=== PATIENT | male | born 2000 | race Caucasian/White ===

== ENCOUNTER 2024-10-06 14:27 | Inpatient (IN) | payer SELFPAY ==
[2024-10-06 14:38] VITALS: BP 122/71; PULSE 88; RESP 18; TEMP 36.7; O2SAT 98
--- NOTE | 2024-10-06 14:42 | ECG_ITS ---
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 Measurements Intervals [place] Rate: 81 P: 48 AK: 155 QRS: 75 QRSD: 90 T: 56 QT: 346 QTc: 404 Interpretive Statements SINUS RHYTHM WITH SINUS ARRHYTHMIA No previous ECG available for comparison Electronically Signed On 10-06-2024 17:49:52 TRAVEL RN OR by Collin Franco M.D. [email or web address]
--- NOTE | 2024-10-06 14:51 | W.ED.PSYCHS ---
HPI - Psych General: Chief Complaint: Psychiatric Symptoms Stated Complaint: SI Time Seen by Provider: 10/06/24 14:30 History of Present Illness: 23-year-old man with a history of admitted methamphetamine abuse with last use a couple of days ago and psychiatric issues including depression who presents emergency room with worsening depression. He says he has suicidal thoughts and is planning on walking in front of a train which is nearby where he is staying. He is currently homeless. No self-mutilating behavior at this time. No fevers. No cough. No altered mental status. He is actively seeking treatment Related Data Home Medications ?Medication ?Instructions ?Recorded ?Confirmed No Known Home Medications 10/06/24 10/06/24 Review of Systems Narrative: Constitutional symptoms: Negative except as documented in HPI. Skin symptoms: Negative except as documented in HPI. Eye symptoms: Negative except as documented in HPI. ENMT symptoms: Negative except as documented in HPI. Respiratory symptoms: Negative except as documented in HPI. Cardiovascular symptoms: Negative except as documented in HPI. Gastrointestinal symptoms: Negative except as documented in HPI. Genitourinary symptoms: Negative except as documented in HPI. Musculoskeletal symptoms: Negative except as documented in HPI. Neurologic symptoms: Negative except as documented in HPI. Psychiatric symptoms: Negative except as documented in HPI. Endocrine symptoms: Negative except as documented in HPI. Physical Exam Narrative: EXAM NARRATIVE: General: Alert. no acute distress Skin: Warm, dry Head: Normocephalic, atraumatic. Neck: Supple, trachea midline. Eye: Extraocular movements are intact. Ears, nose, mouth and throat: Oral mucosa moist. Cardiovascular: Regular rate and rhythm, Normal peripheral perfusion. Respiratory: Lungs are clear to auscultation, respirations are non-labored, breath sounds are equal, Symmetrical chest wall expansion. Gastrointestinal: Soft, Nontender, Non distended, Normal bowel sounds. Musculoskeletal: Normal ROM, no deformity. Neurological: Alert and oriented to person, place, time, and situation, No focal neurological deficit observed. Psychiatric: Cooperative, expresses suicidal ideation. Course Vital Signs: Vital signs: Vital Signs Temperature 98.1 F 10/06/24 14:38 Pulse Rate 88 10/06/24 14:38 Respiratory Rate 18 10/06/24 14:38 Blood Pressure 122/71 10/06/24 14:38 Pulse Oximetry 98 10/06/24 14:38 Oxygen Delivery Me thod Room Air 10/06/24 14:38 MDM - Psych Medical Decision Making Differential diagnosis: Patient with reported depression and suicidal ideation. concerns for infection, alcohol intoxication, cardiac issues or other medical problems prior to psychiatric admission. Workup: labwork, ekg ordered to evaluate the pathologies and to clear the patient medically prior to psychiatric admission EKG: Time 1442. Rate 81. Normal sinus rhythm, No ST-T changes, no ectopy, normal DE & QRS intervals, This was reviewed and interpreted by myself the ER physician at 1448. Lab Review: Laboratory results were reviewed and interpreted by myself the emergency room physician. - Medically cleared. - EKG shows no ischemic changes. - Blood alcohol level is negative, -Tylenol and salicylate levels are negative. - Drug screen is positive for methamphetamine and marijuana. - No signs of infection, urinalysis clear and white count is not elevated - No anemia. - BUN and creatinine are within normal limits. Consultation: I spoke with Dr. Bolanos who is on-call for the psychiatrist service and he agrees to admission Assessment and plan: Depression Suicidal ideation Methamphetamine abuse Homelessness -Admission to neuropsychiatric unit for continued evaluation and treatment. - All lab work was reviewed and interpreted personally by myself, the ER physician - Evaluation and treatment of this problem were appropriate in the emergency setting Lab Data 10/06/24 16:05 10/06/24 16:05 Laboratory Results WBC 5.68 10^3/uL (3.29-11.43) 10/06/24 16:05 RBC 5.45 10^6/uL (3.85-5.65) 10/06/24 16:05 Hgb 14.20 g/dL (11.27-16.99) 10/06/24 16:05 Hct 44.2 % (37-53) 10/06/24 16:05 MCV 81.1 fl (82-101) L 10/06/24 16:05 MCH 26.1 pg (27-33) L 10/06/24 16:05 MCHC 32.1 g/dL (30-55) 10/06/24 16:05 RDW 13.4 % (12.1-15.1) 10/06/24 16:05 Plt Count 283 10^3/cmm (157-399) 10/06/24 16:05 MPV 9.6 fL (7.4-10.4) 10/06/24 16:05 Neut % (Auto) 48.5 % 10/06/24 16:05 Lymph % (Auto) 27.5 % 10/06/24 16:05 [place] % (Auto) 12.0 % 10/06/24 16:05 Eos % (Auto) 9.7 % 10/06/24 16:05 Baso % (Auto) 1.9 % 10/06/24 16:05 Neut # (Auto) 2.76 10^3/uL (1.8-7.7) 10/06/24 16:05 Lymph # (Auto) 1.6 10^3/uL (0.8-4.8) 10/06/24 16:05 [place] # (Auto) 0.7 10^3/uL (0.2-0.9) 10/06/24 16:05 Eos # (Auto) 0.6 10^3/uL (0.0-0.8) 10/06/24 16:05 Baso # (Auto) 0.1 10^3/uL (0.0-0.1) 10/06/24 16:05 Nucleated RBC % (auto) 0 % 10/06/24 16:05 Nucleated RBCs # 0.0 /100WBC 10/06/24 16:05 Sodium 143 mmol/L (136-145) 10/06/24 16:05 Potassium 4.3 mmol/L (3.5-5.1) 10/06/24 16:05 Chloride 105 mmol/L (98-107) 10/06/24 16:05 Carbon Dioxide 30 mmol/L (22-29) H 10/06/24 16:05 Anion Gap 12.3 (5-19) 10/06/24 16:05 BUN 8 mg/dL (6-20) 10/06/24 16:05 Creatinine 0.8 mg/dL (0.7-1.2) 10/06/24 16:05 GFR Calculation 119.8 mL/min (90-130) 10/06/24 16:05 Glucose 94 mg/dL (65-115) 10/06/24 16:05 Calculated Osmolality 294 mOsm/kg (285-295) 10/06/24 16:05 Calcium 9.6 mg/dL (8.5-10.5) 10/06/24 16:05 Total Bilirubin 0.2 mg/dL (0.15-1.2) 10/06/24 16:05 AST 42 U/L (0-40) H 10/06/24 16:05 ALT 24 U/L (0-41) 10/06/24 16:05 Alkaline Phosphatase 72 U/L (40-130) 10/06/24 16:05 Total Protein 7.0 g/dL (6.6-8.7) 10/06/24 16:05 Albumin 4.5 g/dL (3.5-5.2) 10/06/24 16:05 Globulin 2.5 g/dL (1.3-4.6) 10/06/24 16:05 TSH 1.25 uIU/mL (0.27-4.20) 10/06/24 16:05 Urine Color Yellow (Yellow) 10/06/24 14:44 Urine Appearance Turbid (CLEAR) A 10/06/24 14:44 Urine pH 7.5 (5-7) 10/06/24 14:44 Ur Specific [place] 1.021 (1.005-1.030) 10/06/24 14:44 Urine Protein Negative (Negative) 10/06/24 14:44 Urine Glucose (UA) Negative (Normal) 10/06/24 14:44 Urine Ketones Trace (Negative) 10/06/24 14:44 Urine Blood Negative (Negative) 10/06/24 14:44 Urine Nitrate Negative (Negative) 10/06/24 14:44 Urine Bilirubin Negative (Negative) 10/06/24 14:44 Urine Urobilinogen 1.0 mg/dL (Negative) 10/06/24 14:44 Ur Leukocyte Esterase Negative (Negative) 10/06/24 14:44 Urine RBC None /hpf (0-2) 10/06/24 14:44 Urine WBC 0-4 /hpf (0-5) H 10/06/24 14:44 Ur Squamous Epith Cells 0-4 /hpf (0-5) H 10/06/24 14:44 Amorphous Sediment 3+ /hpf 10/06/24 14:44 Urine Bacteria 1+ /hpf (NONE) H 10/06/24 14:44 Urine Mucus 1+ /hpf 10/06/24 14:44 Salicylates < 0.3 mg/dL (3-10) L 10/06/24 16:05 Urine Opiates Screen Negative ng/mL (Negative) 10/06/24 14:44 Acetaminophen < 5.0 ug/mL (10-30) L 10/06/24 16:05 Ur Barbiturates Screen Negative ng/mL (Negative) 10/06/24 14:44 Ur Phencyclidine Scrn Negative ng/mL (Negative) 10/06/24 14:44 Ur Amphetamines Screen Positive ng/mL (Negative) H 10/06/24 14:44 U Benzodiazepines Scrn Negative ng/mL (Negative) 10/06/24 14:44 Urine Cocaine Screen Negative ng/mL (Negative) 10/06/24 14:44 U Marijuana (THC) Screen Positive ng/mL (Negative) H 10/06/24 14:44 Ethyl Alcohol < 10 mg/dL (0-10) 10/06/24 16:05 No radiology studies performed this visit Discharge Plan Discharge Patient Disposition: Admitted As Inpatient Clinical Impression: Depression, Suicidal ideation, Methamphetamine abuse Condition: Stable Coding Level of Care Code ED Service Counter Cashier for Sid Manjarrez
--- NOTE | 2024-10-06 14:54 | PC.PHAR ---
PATIENT NOT FROM HERE, DOESN'T HAVE A PHARMACY AND WOULDN'T GIVE ME ONE A PRIMARY PHARMACY
[2024-10-06 15:28] LABS: Bilirubin Urine Negative (Negative); Blood Urine Negative (Negative); Glucose Urine UA Negative (Normal); Ketones Urine Trace (Negative); Leukocyte Esterase Urine Negative (Negative); Nitrate Urine Negative (Negative); Protein Urine Negative (Negative); Specific Gravity, Urine 1.021 (1.005-1.030); Urine Appearance Turbid (CLEAR); Urine Color Yellow (Yellow); pH Urine 7.5 (5-7)
[2024-10-06 15:36] LABS: Amphetamines Screen Urine Positive (Negative); Barbiturates Screen Urine Negative (Negative); Benzodiazepines Screen Urine Negative (Negative); Cocaine Screen Urine Negative (Negative); Opiate Screen Urine Negative (Negative); PCP Screen Urine Negative (Negative); THC Screen Urine Positive (Negative)
--- NOTE | 2024-10-06 15:49 | PC.NURSE ---
96 hour hold rights read and reviewed with patient. Erick from ER present during reading of rights. Patient verbalized understandings and copy of rights given to patient.
[2024-10-06] MEDS: LORazepam 2 mg/mL INJ 1 mL IM (16:08)
[2024-10-06 16:34] LABS: Basophils # 0.1 10^3/uL (0.0-0.1); Basophils % 1.9 %; Eosinophils # 0.6 10^3/uL (0.0-0.8); Eosinophils % 9.7 %; Hematocrit 44.2 % (37-53); Lymphocytes # 1.6 10^3/uL (0.8-4.8); Lymphocytes % 27.5 %; Mean Corpuscular HGB Conc 32.1 g/dL (30-55); Mean Corpuscular Hemoglobin 26.1 pg (27-33); Mean Corpuscular Volume 81.1 fl (82-101); Mean Platelet Volume 9.6 fL (7.4-10.4); Monocytes # 0.7 10^3/uL (0.2-0.9); Neutrophils # 2.76 10^3/uL (1.8-7.7); Neutrophils % 48.5 %; Nucleated Red Blood Cells % 0 %; Platelet Count 283 10^3/cmm (157-399); Red Blood Count 5.45 10^6/uL (3.85-5.65); Red Cell Distribution Width 13.4 % (12.1-15.1); White Blood Count 5.68 10^3/uL (3.29-11.43)
[2024-10-06 16:54] LABS: UA Manual Slide Review YES; UA Slide Review UA Slide Review Perf
[2024-10-06 16:56] LABS: Add Urine Culture? No; Amorphous Sediment Urine 3+ /hpf; Bacteria Urine 1+ /hpf; Mucus Urine 1+ /hpf; Squamous Epithelial Cell Urine 0-4 /hpf (0-5); WBC Urine 0-4 /hpf (0-5)
[2024-10-06 17:13] LABS: Alanine Aminotransferase 24 U/L (0-41); Albumin Level 4.5 g/dL (3.5-5.2); Alkaline Phosphatase 72 U/L (40-130); Anion Gap 12.3 (5-19); Aspartate Amino Transferase 42 U/L (0-40); Blood Urea Nitrogen 8 mg/dL (6-20); Calcium 9.6 mg/dL (8.5-10.5); Carbon Dioxide 30 mmol/L (22-29); Chloride 105 mmol/L (98-107); Globulin 2.5 g/dL (1.3-4.6); Glomerular Filtration Rate 119.8 mL/min (90-130); Glucose 94 mg/dL (65-115); Osmolality Calculated 294 mOsm/kg (285-295); Potassium 4.3 mmol/L (3.5-5.1); Sodium 143 mmol/L (136-145); Thyroid Stimulating Hormone 1.25 uIU/mL (0.27-4.20); Total Bilirubin 0.2 mg/dL (0.15-1.2)
[2024-10-06 17:15] LABS: Acetaminophen < 5.0 ug/mL (10-30); Alcohol Level < 10 mg/dL (0-10); Salicylate < 0.3 mg/dL (3-10)
[2024-10-06 19:22] VITALS: BP 108/57; PULSE 71; RESP 18; O2SAT 98
[2024-10-06 20:20] VITALS: BP 120/73; PULSE 86; RESP 18; TEMP 36.5; O2SAT 96
[2024-10-06 20:36] VITALS: BP 120/73; PULSE 86; RESP 18; TEMP 36.5; O2SAT 96
[2024-10-06] MEDS: hyDROXYzine 25 mg Capsule 50 MG PO (21:22)
[2024-10-06] MEDS: nicotine 2 mg Gum BUCCAL (21:22)
[2024-10-06] MEDS: OLANZapine 5 mg ODT PO (21:22)
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
[2024-10-06] MEDS: nicotine 4 mg lozenge MUCOUS MEM (23:56)
--- NOTE | 2024-10-07 04:02 | PC.NURSE ---
PT WAS GIVEN TRAZODONE 50 MG FOR SLEEP AND VISTARIL 50 MG FOR INCREASED ANXIETY. MEDICATIONS DEEMED EFFECTIVE. PT HAS BEEN IN BED RESTING SINCE APPROXIMATELY 2329.
[2024-10-07 06:00] VITALS: BP 119/72; PULSE 78; RESP 16; TEMP 37; O2SAT 98
[2024-10-07] MEDS: nicotine 4 mg lozenge MUCOUS MEM (12:33)
--- NOTE | 2024-10-07 13:51 | PC.OT ---
OT evaluation withheld at this time due to patient's non-compliance. He is in bed, turns his head away and keeps banging his on the pillow. Nursing (Laura) notified. To attempt evaluation at a later time/date.
[2024-10-07 14:00] VITALS: BP 122/53; PULSE 84; RESP 18; TEMP 37.1; O2SAT 98
[2024-10-07] MEDS: nicotine 2 mg Gum BUCCAL ×2 (15:45→19:57)
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
[2024-10-07] MEDS: buPROPion SR (12 HR) 150 mg Tablet PO (19:58)
[2024-10-07 20:03] VITALS: BP 138/89; PULSE 93; RESP 18; TEMP 36.9; O2SAT 96
[2024-10-08] MEDS: LORazepam 2 mg/mL INJ 1 mL IM (00:22)
[2024-10-08] MEDS: haloperidol inj 5 mg/mL INJ 1 mL IM ×2 (00:22→12:00)
[2024-10-08] MEDS: diphenhydrAMINE 50 mg/mL SDV 1mL IM ×2 (00:22→12:00)
[2024-10-08] MEDS: benzocaine 20% 7 gm 1 APPLIC MUCOUS MEM (00:23)
[2024-10-08] MEDS: acetaminophen 325 mg Tablet 650 MG PO (00:23)
--- NOTE | 2024-10-08 00:28 | PC.NURSE ---
PT CAME TO NURSES STATION AROUND 0006 COMPLAINING OF SEVERE TOOTH PAIN. THIS PROCESS LINE OPERATOR TOLD HIM I WOULD GET HIM SOME MEDICATION AND HE RETURNED TO HIS ROOM. HE STARTED TO RAISE HIS VOICE AND SCREAM ABOUT THE PAIN AND SECURITY WAS CALLED AT THIS TIME. THIS PROCESS LINE OPERATOR OFFERED TYLENOL AND ORAJEL AT 0010ISH AND PT BEGAN TO YELL STATED THAT DOES NOT WORK AND HE ONLY WANTS REAL PAIN MEDICATION. HE BEGAN PUNCHING THE SEWELL AND THE BED. THIS PROCESS LINE OPERATOR CALLED DR. DAVID AND INFORMED HIM A CODE 10 WAS BEING CALLED AND PT WAS GOING TO RECEIVE ATIVAN, HALDOL AND BENADRYL DUE TO OUTBURST IN BEHAVIOR DUE TO PT REQUESTING PAIN MEDICATION. NICOLE CHRISTINA CALLED A CODE 10 LARRY MENDEZ WAS ARRIVING ONTO UNIT. STAFF WAITED UNTIL OTHERS ARRIVED FOR CODE 10 BEFORE APPROACHING THE PT IN PT ROOM. ONCE STAFF WERE IN PT ROOM HE BEGAN TO YELL AND STATED HE WASN'T GETTING SHOT UP WITH BOOTY JUICE . PT WAS VERY ARGUMENTATIVE AND ACTED LIKE HE WAS GOING TO HARM STAFF BUT WAS ABLE TO BE DEESCALATED AND SAT ON THE BED TO RECEIVE INJECTIONS. NICOLE CHRISTINA GAVE BENADRYL 50MG IN THE LEFT DELTOID AND THIS PROCESS LINE OPERATOR GAVE HALDOL 5MG AND ATIVAN 2MG IN THE RIGHT DELTOID. PT CALMLY REQUESTED TYLENOL AND ORAJEL. PT WAS GIVEN MEDICATION AND IS NOW UP IN THE DAY ROOM WATCHING TV.
[2024-10-08 06:00] VITALS: RESP 16
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
[2024-10-08] MEDS: buPROPion XL (24 HR) 150 mg Tablet PO (10:46)
[2024-10-08] MEDS: hyDROXYzine 25 mg Capsule 50 MG PO ×2 (10:46→21:28)
[2024-10-08] MEDS: nicotine 4 mg lozenge MUCOUS MEM (10:46)
--- NOTE | 2024-10-08 11:54 | PC.NURSE ---
PT UP TO NURSES STATION COMPLAINING OF TOOTH PAIN. PT WAS OFFERED IBUPROFEN 600 MG TWICE AND HE HAS REFUSED STATING THAT AIN'T GONNA HELP, PT DEMANDING I GET ONE OF THOSE SHOTS LIKE LAST NIGHT FOR MY TOOTH THAT'S THE ONLY THING THAT'S GONNA HELP. RN EDUCATED PT ON IBUPROFEN AND HOW THAT MEDICATION WILL TAKE THE INFLAMMATION OUT OF THE AFFECTED AREA AND RELIEVE THE PAIN. PT CONTINUES TO INSIST I NEED TO GET THAT SHOT LIKE LAST NIGHT OR IT'S GONNA GET LIKE LAST NIGHT UP IN HERE. PT IS REFERRING TO A SITUATION THAT ESCALATED INTO A CODE TEN REQUIRING THE PT TO TAKE INJECTIONS OF ATIVAN, BENADRYL AND HALDOL AND SECURITY. RN AGAIN ATTEMPTED EDUCATE PT ON PAIN MANAGEMENT TECHNIQUES BUT PT CONTINUED TO DISREGARD. DR. DAVID NOTIFIED BY PHONE AND NEW ORDERS RECEIVED FOR ONE TIME ORDER OF HALDOL 5 MG IM AND BENADRYL 50 MG IM NOW. PT TOOK INJECTIONS WILLING BUT CONTINUES TO DECLINE IBUPROFEN. ORDERS PLACED. ALL QUESTIONS ANSWERED AND SUPPORT VOICED.
[2024-10-08 14:00] VITALS: RESP 16
--- NOTE | 2024-10-08 18:09 | PC.NURSE ---
RESPIRATIONS WERE OBTAINED PER CHARGE NURSE DUE TO PT RECEIVING IM SHOTS PRIOR TO VITALS BEING DUE.
[2024-10-08 20:52] VITALS: BP 117/72; PULSE 86; RESP 18; TEMP 36.3; O2SAT 99
[2024-10-08] MEDS: ibuprofen 600 mg Tablet PO (21:28)
[2024-10-08] MEDS: OLANZapine 5 mg ODT PO (21:28)
[2024-10-09 06:00] VITALS: BP 107/67; PULSE 86; RESP 18; O2SAT 99
[2024-10-09] MEDS: amoxicillin-clav 875-125 mg Tablet 1 TAB PO ×2 (10:22→18:23)
[2024-10-09] MEDS: nicotine 4 mg lozenge MUCOUS MEM (10:22)
[2024-10-09] MEDS: ibuprofen 600 mg Tablet PO ×2 (10:23→18:26)
[2024-10-09] MEDS: buPROPion XL (24 HR) 150 mg Tablet PO (10:23)
[2024-10-09] MEDS: hyDROXYzine 25 mg Capsule 50 MG PO ×3 (10:23→20:33)
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
[2024-10-09] MEDS: nicotine 2 mg Gum BUCCAL ×3 (12:08→20:33)
[2024-10-09 14:00] VITALS: BP 132/65; PULSE 116; RESP 17; TEMP 36.5; O2SAT 96
--- NOTE | 2024-10-09 19:38 | PC.NURSE ---
Tongue swelling During shift change, this nurse and NICOLE Kumar were alerted by PRIYANKA Phipps that this patient was having an anaphylactic reaction to nuts from eating chocolate chip cookies. Patient reports that his tongue feels as though it is swelling.This nurse and PRIYANKA Phipps timbo up 50mg Benadryl. The medication was administered into patient's left deltoid muscle. Patient's VS are as follows: 138/70, HR 97, 97%RA, 98.7, RR 20. Dr. Christensen notified in person. Patient told to stay on bench, in site of staff. Following benadryl injection, patient on phone calling his girlfriend. Patient does not appear to be in any distress.
[2024-10-09] MEDS: diphenhydrAMINE 50 mg/mL SDV 1mL IM (19:59)
[2024-10-09] MEDS: acetaminophen 325 mg Tablet 650 MG PO (20:33)
[2024-10-09] MEDS: benzocaine 20% 7 gm 1 APPLIC MUCOUS MEM (20:36)
[2024-10-09] MEDS: LORazepam 2 mg/mL INJ 1 mL IM (20:50)
[2024-10-09] MEDS: haloperidol inj 5 mg/mL INJ 1 mL IM (20:50)
[2024-10-09 21:29] VITALS: BP 124/70; PULSE 85; RESP 18; TEMP 36.7; O2SAT 98
--- NOTE | 2024-10-09 22:59 | PC.NURSE ---
Behavioral At approximately 2030 pt was standing at nurses station getting night medications when he started yelling and cussing at another pt telling them to get the fuck away from him before he loses his fucking shit. Nursing staff responded to the hallway quickly in an attempt to separate the patient's from each other. This patient told this nurse I'm from [place] we don't put up with shit like that. After patient was given his night medications he went into his room and punched a wall. Nursing staff arrived to patient's room he was sitting on the edge of the bed breathing heavily. Pt This nurse informed the pt that we would like to give him some medications to calm down and the pt agreed. Ativan 2mg and Haldol 5mg were given intramuscularly into the right deltoid at 2049. Pt tolerated medications well and immediately laid down in his bed. Dr. Christensen notified. Pt is now observed resting in bed quietly with eyes closed. Behavioral monitoring continues
[2024-10-10 06:00] VITALS: BP 115/69; PULSE 104; RESP 18; TEMP 36.6; O2SAT 97
[2024-10-10] MEDS: amoxicillin-clav 875-125 mg Tablet 1 TAB PO ×2 (08:16→17:10)
[2024-10-10] MEDS: buPROPion XL (24 HR) 150 mg Tablet PO (08:16)
[2024-10-10] MEDS: nicotine 2 mg Gum BUCCAL ×2 (08:17→11:24)
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
[2024-10-10 14:00] VITALS: BP 119/72; PULSE 115; RESP 17; TEMP 36.7; O2SAT 96
[2024-10-10] MEDS: nicotine 4 mg lozenge MUCOUS MEM ×2 (15:16→20:32)
[2024-10-10] MEDS: ibuprofen 600 mg Tablet PO (19:15)
[2024-10-10] MEDS: OLANZapine 5 mg ODT PO (20:31)
[2024-10-10 20:37] VITALS: BP 124/53; PULSE 110; RESP 18; TEMP 36.7; O2SAT 98
[2024-10-10 21:24] VITALS: BP 120/79; PULSE 109; RESP 18; TEMP 36.9; O2SAT 97
[2024-10-10] MEDS: diphenhydrAMINE 50 mg Capsule PO (22:30)
--- NOTE | 2024-10-11 00:22 | PC.NURSE ---
Fall At approximately 2114 pt was standing up at the nurses station talking to nursing staff when he started to run to his room and slipped and fell to the ground. This nurse, Micheline thrasher, and Lala LEON arrived to [facility] quickly to assess patient at this time. Patient and Lala Rosario CNA both stated that the patient did not hit his head when he fell. Pt stood up and was assisted to bench by nursing staff. Vitals signs were obtained BP 120/79, HR 109, RR 18, and O2 98% on RA. Pt states that he landed on his right elbow but did not complain of any pain at this time and no swelling or tenderness was noted. Pt sat on the bench for a few minutes and then was assisted to his room by this nurse. Through Freight Engineer Arielle was notified at [address] Christensen was notified by phone at 2120 and no new orders were given at this time. During 2129 rounds Lala LEON reported to this nurse that pt was in the floor of his room doing push-ups. Behavioral monitoring continues at this time
[2024-10-11 06:00] VITALS: BP 125/75; PULSE 105; RESP 18; TEMP 36.4; O2SAT 96
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
--- NOTE | 2024-10-11 07:36 | PC.NURSE ---
Morning assessment During morning assessment, patient endorses feeling great . He said that he is homicidal because he wants to kill negative energy. Patient denies pain, anxiety, HI, SI, AVH.
[2024-10-11] MEDS: amoxicillin-clav 875-125 mg Tablet 1 TAB PO ×2 (08:08→18:02)
[2024-10-11] MEDS: buPROPion XL (24 HR) 150 mg Tablet PO (08:08)
[2024-10-11] MEDS: nicotine 2 mg Gum BUCCAL ×3 (08:08→20:17)
[2024-10-11] MEDS: nicotine 4 mg lozenge MUCOUS MEM ×3 (10:46→18:01)
[2024-10-11 14:00] VITALS: BP 119/63; PULSE 103; RESP 17; TEMP 36.7; O2SAT 97
[2024-10-11 20:09] VITALS: BP 138/72; PULSE 108; RESP 17; TEMP 36.8; O2SAT 96
[2024-10-11] MEDS: benzocaine 20% 7 gm 1 APPLIC MUCOUS MEM (20:16)
[2024-10-11] MEDS: OLANZapine 5 mg ODT PO (20:17)
[2024-10-11] MEDS: ibuprofen 600 mg Tablet PO (21:35)
[2024-10-11] MEDS: diphenhydrAMINE 50 mg Capsule PO (21:41)
[2024-10-12] MEDS: nicotine 2 mg Gum BUCCAL ×3 (03:11→11:00)
[2024-10-12 06:00] VITALS: BP 113/63; PULSE 102; RESP 18; TEMP 36.4; O2SAT 97
[2024-10-12] MEDS: amoxicillin-clav 875-125 mg Tablet 1 TAB PO ×2 (08:43→17:05)
[2024-10-12] MEDS: buPROPion XL (24 HR) 150 mg Tablet PO (08:43)
[2024-10-12 14:00] VITALS: BP 114/58; PULSE 98; RESP 17; TEMP 36.7; O2SAT 97
--- NOTE | 2024-10-12 14:21 | P.NPUPN_ITS ---
Subjective NPU 2 Subjective: Patient presented today reporting that he is feeling very excited. He was able to reach his brother and his brother continued his commitment to the idea of him coming to [place] to stay with him. Or at least stay in that area. He reports he is doing really well on the Wellbutrin and denied any additional concerns. We discussed the tentative plan to discharge him in the morning so he could catch the bus at 1130 or so tomorrow morning in [facility]. He denied any side effects to the medication. Mental Status Exam 2 MSE Comments: This is a well-nourished well-developed white male in hospital scrubs with adequate grooming and limited eye contact. No abnormal movements except for mild psychomotor agitation. Cooperative with exam and mild distress. Speech was slightly increased rate and normal volume.. Mood described as really good, affect slightly energetic. Thought process organized. Thought content: Patient denied suicidal or homicidal ideation, there were no delusions reported or noted, he denied any auditory or visual hallucinations. Attention and concentration appeared intact and memory was mostly reliable but none were formally tested. He is alert and oriented x 3. Insight and judgment are improving impulse control limited but improving. Vitals/I&O/Wt Last Vital Signs Temp 97.5 F L 10/12/24 06:00 Pulse 102 H 10/12/24 06:00 Resp 18 10/12/24 06:00 BP 113/63 10/12/24 06:00 Pulse Ox 97 10/12/24 06:00 O2 Del Method Room Air 10/12/24 06:00 Data NPU 10/06/24 16:05 10/06/24 16:05 A&P Assessment and plan (1) Depression: (2) Suicidal ideation: (3) Methamphetamine abuse: (4) ADHD (attention deficit hyperactivity disorder), combined type: (5) Trauma in childhood: Plan This is an 23-year-old white male with history of addiction issues as well as depression and anxiety and significant history of trauma. Diagnosis of borderline personality disorder (BPD) is confirmed. History of substance use, including methamphetamine, with recent efforts to quit. Previous diagnosis of depression with a history of suicidal ideation and attempts. No current auditory or visual hallucinations reported, despite past diagnosis of schizophrenia or schizoaffective disorder. No evidence of bipolar disorder, despite previous mislabeling. Anxiety present, with a history of self-injurious behavior. ADHD diagnosed in childhood. 1. Started Wellbutrin XL 150 mg in the morning and given a one-time dose of the 150 mg of Wellbutrin SR 2. Encourage individual, group and milieu therapy. 3. Continue every 15 minute checks for safety. 4. Obtain collateral information. 5. Encourage sober living treatment after discharge at the highest level care to which he is willing to commit. 6. Observe against the backdrop of the 96-hour hold for safety. 7. Tentative plan for him to go to [place] and live with his brother who is in the when he sends him a bus ticket. Plan for discharge in the morning. PDMP PDMP Reviewed: Not Reviewed Attestations NPU 2 Medical Necessity Statement*: Inpatient hospitalization is medically necessary and the clinically appropriate intervention at this time. We will monitor medications and make changes as indicated. Likely length of stay 1 day. Coding Level of Care Code Acute Code for Chg Fwd Diagnoses Depression F32.A Suicidal ideation R45.851 Methamphetamine abuse F15.10 ADHD (attention deficit hyperactivity disorder), combined type F90.2 Trauma in childhood Z62.819
[2024-10-12] MEDS: benzocaine 20% 7 gm 1 APPLIC MUCOUS MEM (14:27)
[2024-10-12] MEDS: OLANZapine 5 mg ODT PO ×2 (20:19→23:43)
[2024-10-12] MEDS: diphenhydrAMINE 50 mg Capsule PO (20:19)
[2024-10-12 20:21] VITALS: BP 146/51; PULSE 106; RESP 18; TEMP 36.9; O2SAT 96
[2024-10-12] MEDS: haloperidol 5 mg Tablet PO (20:56)
[2024-10-12] MEDS: hyDROXYzine 25 mg Capsule 50 MG PO (23:42)
[2024-10-12] MEDS: ondansetron 4 MG Tablet PO (23:43)
[2024-10-13 06:00] VITALS: BP 104/58; PULSE 96; RESP 18; TEMP 36.4; O2SAT 98
[2024-10-13] MEDS: nicotine 2 mg Gum BUCCAL (06:41)
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
[2024-10-13 08:11] VITALS: BP 104/58; PULSE 18; RESP 96; TEMP 36.4; O2SAT 98
[2024-10-13] MEDS: buPROPion XL (24 HR) 150 mg Tablet PO (08:18)
[2024-10-13] MEDS: amoxicillin-clav 875-125 mg Tablet 1 TAB PO (08:18)
== END 2024-10-13 08:31 | disposition home or self-care (01) | DRG 881 ==
LOC: ER 15:52 → NP 18:46
PROVIDERS: Admitting Provider Psychiatry & Neurology Psychiatry; Emergency Provider Emergency Medicine; Visit Provider Psychiatry & Neurology Psychiatry
DX: F32.A Depression, unspecified (principal); R45.851 Suicidal ideations; Z59.01 Sheltered homelessness; F15.10 Other stimulant abuse, uncomplicated; F90.2 Attention-deficit hyperactivity disorder, combined type; Z62.819 Personal history of unspecified abuse in childhood; F41.9 Anxiety disorder, unspecified; F60.3 Borderline personality disorder; Z91.51 Personal history of suicidal behavior; F17.290 Nicotine dependence, other tobacco product, uncomplicated; Z91.52 Personal history of nonsuicidal self-harm; Z81.8 Family history of other mental and behavioral disorders
CPT/HCPCS: 36415; 80053; 80306; 80307; 81001; 84443; 85025; 93005; 96372; 97150; 97165; 99285; J1200; J1630; J2060; Q0162; Q0163